=== PATIENT | female | born 1940 | race Caucasian/White ===

== ENCOUNTER 2020-06-23 15:12 | Observation (INO) | payer MEDICARE, SELFPAY ==
[2020-06-23] VITALS (8 sets, daily range): BP systolic 126–181; BP diastolic 92–138; PULSE 73–144; RESP 16–18; TEMP 36.3–36.9; O2SAT 94–98; BMI 40.0
--- NOTE | 2020-06-23 15:55 | ECG_ITS ---
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 Measurements Intervals [place] Rate: 84 P: KS: QRS: 54 QRSD: 89 T: 99 QT: 248 QTc: 293 Interpretive Statements ATRIAL FIBRILLATION NONSPECIFIC ST & T-WAVE ABNORMALITY ABNORMAL RHYTHM ECG No previous ECG available for comparison Electronically Signed On 06-23-2020 18:36:36 TOLL TICKET CLERK by Gertrudis Diehl M.D. [id number]
--- NOTE | 2020-06-23 15:55 | XR_ITS ---
WS: [id number] XR chest 1V portable [id number] REASON FOR EXAM: chest pain FINDINGS: Moderate tortuosity the thoracic aorta without aneurysmal dilatation. Heart size within normal limits. Calcified granulomatous changes in both hemithoraces. No active pulmonary parenchymal or pleural disease noted. Mild degenerative changes in the lower thoracic spine. XR/XR chest 1V portable [id number] IMPRESSION: No acute chest abnormality.
[2020-06-23 16:01] LABS: Basophils # 0.1 10^3/uL (0.0-0.1); Basophils % 0.9 %; Eosinophils # 0.5 10^3/uL (0.0-0.8); Eosinophils % 5.9 %; Hematocrit 46.7 % (37.0-47.0); Hemoglobin 15.1 g/dL (11.5-15.3); Lymphocytes # 2.6 10^3/uL (0.8-4.8); Mean Corpuscular HGB Conc 32.3 g/dL (30.0-36.0); Mean Corpuscular Volume 89.6 fL (81-99); Mean Platelet Volume 10.8 fL (7.4-10.4); Monocytes # 0.8 10^3/uL (0.2-0.9); Monocytes % 8.3 %; Neutrophils # 5.04 10^3/uL (1.8-7.7); Neutrophils % 55.4 %; Nucleated Red Blood Cells % 0 %; Platelet Count 248 10^3/cmm (130-400); Red Blood Count 5.21 10^6/uL (4.1-5.3); Red Cell Distribution Width 13.4 % (12.1-15.1); White Blood Count 9.1 10^3/uL (4.0-10.0)
[2020-06-23 16:26] LABS: Troponin(5th) Baseline 20 ng/L (0-10)
[2020-06-23 16:34] LABS: Alanine Aminotransferase 14 U/L (0-33); Albumin Level 4.4 g/dL (3.5-5.2); Alkaline Phosphatase 83 IU/L (35-105); Aspartate Amino Transferase 15 U/L (0-32); Blood Urea Nitrogen 29 mg/dL (8-23); Calcium 10.4 mg/dL (8.5-10.5); Carbon Dioxide 27 mmol/L (22-29); Chloride 102 mmol/L (98-107); Globulin 2.5 g/dL (1.3-4.6); Glucose 101 mg/dL (65-115); NT Pro B Type Natriuretic Pept 1524 pg/mL (0-450); Osmolality Calculated 298 mOsm/kg (285-295); Sodium 141 mmol/L (136-145); Thyroid Stimulating Hormone 2.68 uIU/mL (0.27-4.20); Total Bilirubin 0.4 mg/dL (0.15-1.2); Total Protein 6.9 g/dL (6.6-8.7)
[2020-06-23 17:08] LABS: Protein Urine Neg (Negative); Specific Gravity, Urine 1.015 (1.005-1.030); Urine Appearance Hazy (CLEAR); Urine Color Yellow (Yellow); pH Urine 6 (5-7)
[2020-06-23 17:09] LABS: Add Urine Culture? Yes; Add Urine Microscopic? YES; Bacteria Urine 1+ /hpf; Bilirubin Urine Neg (Negative); Blood Urine Neg (Negative); Glucose Urine UA Norm (Normal); Ketones Urine Negative (Negative); Leukocyte Esterase Urine 1+ (Negative); Nitrate Urine Negative (Negative); RBC Urine 0-4 /hpf (0-2); Squamous Epithelial Cell Urine 0-4 /hpf (0-5); Urobilinogen Urine Norm (Negative); WBC Urine 25-40 /hpf (0-5)
--- NOTE | 2020-06-23 18:02 | PM.HP ---
Providers/Chief Complaint Admitting Physician: Saul Schmidt MD Primary Care Provider: Jossie Beth MD Chief Complaint: A FIB History of Present Illness Zenia Streeter is a 79 year old female with a past medical history of diastolic CHF, hypertension, hyperlipidemia who presents to [facility] due to complaints of tachycardia. Patient tells me that she checks her blood pressure regularly, roughly 2 days ago, she noticed that her heart rates were in the 140s, she felt palpitations, no shortness of breath, no chest pain, no orthopnea, no paroxysmal nocturnal dyspnea, no alcohol use, no drug use. These palpitations and fast heart rate persisted, until she presented to Dr. Beth office, was diagnosed with A. fib, told to come to the emergency room. In the emergency room patient was found to have A. fib with RVR, heart rates in the 140s, heart rates improved with 20 mg of IV Cardizem, heart rates now in the 90s to 110s, atrial fibrillation, hypertensive urgency, blood pressure 181/138, no chest pain, no palpitations, no lightheadedness, no dizziness, no strokelike symptoms, no focal neurologic deficits, no paresthesias, no headache, no blurry vision. She denies a history of CAD, no history of strokes, no history of CKD. Review of Systems Const: Denies: fever(s), chills, fatigue or malaise Eyes: Denies: change in vision or blurry vision ENMT: Denies: nasal congestion Card: Denies: chest pain or palpitations Resp: Denies: dyspnea, productive cough, non-productive cough or wheezing GI: Denies: abdominal pain, nausea, vomiting, hematemesis, diarrhea, constipation, hematochezia or melena : Denies: flank pain, dysuria or urinary frequency Musc: Denies: neck pain or back pain Skin/Breast: Denies: rash Neuro: Denies: headache(s), dizziness or vertigo Psych: Denies: anxiety or depression Endo: Denies: polyuria or polydipsia Medications/Allergies Home Medications Medication Instructions Recorded Confirmed Last Taken Type bupropion HCl 300 mg PO DAILY@06/23/20 06/23/20 06/23/20 History citalopram 20 mg PO DAILY@06/23/20 06/23/20 06/23/20 History furosemide 20 mg PO DAILY@06/23/20 06/23/20 06/23/20 History hydrochlorothiazide 25 mg PO DAILY@06/23/20 06/23/20 06/23/20 History losartan 100 mg PO DAILY@06/23/20 06/23/20 06/23/20 History melatonin 10 mg PO BEDTIME@06/23/20 06/23/20 06/22/20 History meloxicam 15 mg PO DAILY@06/23/20 06/23/20 06/23/20 History pravastatin 40 mg PO BEDTIME@06/23/20 06/23/20 06/22/20 History Allergies Allergy/AdvReac Type Severity Reaction Status Date / Time No Known Allergies Allergy Verified 06/23/20 12:31 PFSH Acute PFSH: Medical History (Updated 06/23/20 @ 18:06 by Saul Schmidt MD) Benign hypertension History of alcoholism Insomnia Moderate episode of recurrent major depressive disorder Primary generalized (osteo)arthritis Surgical History History of hip surgery Hx of cholecystectomy Family History (Updated 06/23/20 @ 18:03 by Saul Schmidt MD) Mother Bipolar disorder Alcohol abuse Father CAD (coronary artery disease) Social History (Updated 06/23/20 @ 15:33 by Joseph Villatoro RN) Smoking and tobacco status: former smoker Quit status (tobacco): has quit using tobacco Former quit date comment: when she was 23 yo Alcohol intake: former Substance/Drug Use: never History of recent travel: No Current gender identity: Female Vitals/I&O/Wt Last Vital Signs Temp 97.3 F L 06/23/20 15:28 Pulse 100 06/23/20 16:53 Resp 17 06/23/20 16:53 BP 181/138 06/23/20 16:36 Pulse Ox 98 06/23/20 16:53 Weight last 48 hrs Weight 102.512 kg Physical Exam Const: COMMON NORMALS: no acute distress and patient oriented x3 GENERAL APPEARANCE: cooperative and comfortable HENMT: COMMON NORMALS: normocephalic HEAD & SCALP: normocephalic Eye: COMMON NORMALS: Equal, round and reactive pupils present and EOMs intact bilaterally GENERAL EYE: appearance normal, both eyes and all related structures PUPIL: Yes Equal, round and reactive pupils present Neck/C-Spine: COMMON NORMALS: full ROM, no lymphadenopathy, no JVD and Thyroid normal THYROID: Thyroid normal Lymph: LYMPHATIC: no lymphadenopathy noted Resp: COMMON NORMALS: normal respiratory effort, No retractions, No use of accessory muscles and clear to auscultation bilaterally AUSCULTATION: clear to auscultation bilaterally Cardio: COMMON NORMALS: no JVD, regular rate, regular rhythm, S1 normal heart sound present, S2 normal heart sound present, No gallops present (Cardio), No clicks present (Cardio) and No murmurs present (Cardio) RATE: tachycardic RHYTHM: abnormal rhythm HEART SOUNDS: S1 normal heart sound present and S2 normal heart sound present GI: COMMON NORMALS: Normal to inspection, nondistended, normoactive bowel sounds present, Soft to palpation, non-tender and No hepatosplenomegaly present PALPATION: Yes Soft to palpation and Yes No hepatosplenomegaly present Extremity: COMMON NORMALS: normal to inspection, full ROM and no pedal edema Neuro: COMMON NORMALS: patient oriented x3, CN's II-XII intact bilaterally, moves all extremities and no focal motor deficits Psych: COMMON NORMALS: mental status grossly normal, Normal thought process present and cooperative THOUGHT PROCESS: Normal thought process present Data : 06/23/20 15:53 06/23/20 15:53 A&P Assessment and plan (1) Hyperlipidemia: Continue atorvastatin Status: Chronic Qualifiers: Hyperlipidemia type: mixed hyperlipidemia Qualified Code(s): E78.2 - Mixed hyperlipidemia (2) Benign hypertension: Continue Lasix 20 twice daily, hydrochlorothiazide 25 mg daily, losartan 100 mg daily, added metoprolol 25 twice daily, 10 mg daily -Labetalol as needed Status: Acute (3) Diastolic CHF: Ordered cardiac echocardiogram, BNP 1524, Lasix 20 twice daily Status: Acute (4) New onset atrial fibrillation: -Metoprolol 25 mg twice daily -TSH, magnesium pending -Eliquis 5 mg twice daily -Telemetry monitoring -Cardiac echo Status: Acute (5) Hypertensive urgency: -EKG no signs of acute ST-T wave changes, will order CT of the head to evaluate for stroke, blood work unremarkable for CKD -Metoprolol 25 twice daily, Norvasc 10 mg added -Labetalol 10 mg twice daily as needed for hypertension Status: Acute (6) NSTEMI (non-ST elevated myocardial infarction): -Baseline troponin 20 -EKG no acute ST-T wave changes -Trend troponins, trend EKGs, telemetry monitoring, monitor for chest pain -No active chest pain -Likely supply demand ischemia from CHF and A. fib -Statin, aspirin Status: Acute (7) Moderate episode of recurrent major depressive disorder: Status: Acute Attestations Medical Necessity Statement*: Patient requires hospitalization, outpatient with observation, for new onset atrial fibrillation, A. fib with RVR, NSTEMI, hypertensive urgency Coding Level of Care Code Acute Manuscript Reader for Chg Fwd Diagnoses Hyperlipidemia E78.2 Hyperlipidemia type: mixed hyperlipidemia Benign hypertension I10 Diastolic CHF I50.30 New onset atrial fibrillation I48.91 Hypertensive urgency I16.0 NSTEMI (non-ST elevated myocardial infarction) I21.4 Moderate episode of recurrent major depressive disorder F33.1
[2020-06-23 19:09] LABS: Troponin 5 2HR 19.11 ng/L (0-10)
[2020-06-23 19:14] LABS: Troponin 5 2HR Delta -0.89 ABS# (0-10)
--- NOTE | 2020-06-23 19:29 | CTR_ITS ---
PROCEDURE INFORMATION: Exam: CT Head Without Contrast Exam date and time: 06/23/2020 7:35 PM Age: 79 years old Clinical indication: Other: Hypertension; Patient HX: Hypertensive; Additional info: HTN urgency TECHNIQUE: Imaging protocol: Computed tomography of the head without contrast. Radiation optimization: All CT scans at this facility use at least one of these dose optimization techniques: automated exposure control; mA and/or kV adjustment per patient size (includes targeted exams where dose is matched to clinical indication); or iterative reconstruction. COMPARISON: No relevant prior studies available. RADIATION DOSE METRICS: Total DLP (mGy-cm): 775.22 FINDINGS: Brain: Mild diffuse cortical volume loss. Moderate patchy hypodensities in supratentorial periventricular and subcortical white matter. No intracranial hemorrhage. Cerebral ventricles: No ventriculomegaly. Bones/joints: Unremarkable. No acute fracture. Paranasal sinuses: Visualized sinuses are unremarkable. No fluid levels. Mastoid air cells: Visualized mastoid air cells are well aerated. Soft tissues: Unremarkable. CT/CT head wo con* [id number] IMPRESSION: 1. No acute intracranial abnormality. 2. Moderate microangiopathy. Radiation Dose CTDIVOL = (mGy): DLP = 775.22 (mGy-cm)
[2020-06-23 20:55] LABS: Magnesium 1.9 mg/dL (1.7-2.3)
--- NOTE | 2020-06-23 21:02 | W.ED.ARRPALP ---
HPI - Arrhythmia/Palpitations General: Chief Complaint: Arrhythmia/Palpitations Stated Complaint: new onset afib Time Seen by Provider: 06/23/20 15:43 Source: patient Mode of arrival: ambulatory Limitations: no limitations History of Present Illness: HPI narrative: The patient is a 79-year-old female with no prior cardiac history who presents to the emergency department with complaints of palpitation and feeling like her heart racing that started yesterday. She has no chest pain, but has some shortness of breath. She denies any fever, dizziness, cough. She went to her primary care provider's office today and he did an EKG which showed A. fib with RVR and she was sent here to be seen and evaluated. complaint: heart racing and palpitations Associated symptoms: Deny nausea or vomiting Review of Systems General: Reports: 10 or more systems reviewed and unremarkable except in HPI and below Const: Denies: fever(s), chills or body aches Eyes: Denies: change in vision or blurry vision ENMT: Denies: throat pain, enlarged tonsils, odynophagia, hoarseness, mouth pain or swelling of lips/tongue Card: Reports: palpitations and irregular heart rhythm; Denies: chest pain, edema or swelling of feet/ankles Resp: Denies: dyspnea, productive cough or non-productive cough GI: Denies: abdominal pain, nausea or vomiting : Denies: flank pain, difficulty voiding, dysuria, urinary frequency, urinary urgency or urinary hesitancy Musc: Denies: neck pain, back pain or extremity swelling Skin/Breast: Denies: rash, pruritus or erythema Neuro: Denies: headache(s), numbness in extremities or weakness in extremities Endo: Denies: polyuria, polydipsia or tired all the time [facility] ED PFSH: Medical History Benign hypertension History of alcoholism Insomnia Moderate episode of recurrent major depressive disorder Primary generalized (osteo)arthritis Surgical History History of hip surgery Hx of cholecystectomy Family History Mother Bipolar disorder Alcohol abuse Father CAD (coronary artery disease) Social History Smoking and tobacco status: former smoker Quit status (tobacco): has quit using tobacco Former quit date comment: when she was 23 yo Alcohol intake: former Substance/Drug Use: never History of recent travel: No Current gender identity: Female Physical Exam Const: COMMON NORMALS: no acute distress, average body habitus, patient oriented x3, no limitations, healthy appearing, alert and well nourished HENMT: COMMON NORMALS: normocephalic, atraumatic and moist oral mucous membranes HEAD & SCALP: normocephalic and atraumatic Neck/C-Spine: COMMON NORMALS: no meningeal signs and no JVD Resp: COMMON NORMALS: normal respiratory effort, No retractions, No use of accessory muscles, clear to auscultation bilaterally and percussion normal AUSCULTATION: clear to auscultation bilaterally PERCUSSION: percussion normal Cardio: COMMON NORMALS: no JVD, S1 normal heart sound present, S2 normal heart sound present, No gallops present (Cardio), No clicks present (Cardio), No murmurs present (Cardio), No rub (Cardio) and Peripheral pulses 2+ throughout RATE: tachycardic RHYTHM: abnormal rhythm irregularly irregular HEART SOUNDS: S1 normal heart sound present and S2 normal heart sound present PERIPHERAL PULSES: Peripheral pulses 2+ throughout GI: COMMON NORMALS: Normal to inspection, nondistended, normoactive bowel sounds present, Soft to palpation, non-tender, No hepatosplenomegaly present, no masses and no bruits PALPATION: Yes Soft to palpation and Yes No hepatosplenomegaly present Extremity: COMMON NORMALS: normal to inspection, full ROM, capillary refill normal, no calf tenderness and no pedal edema Neuro: COMMON NORMALS: patient oriented x3 SENSORIUM/ORIENTATION: Yes alert MENINGEAL SIGNS: Yes no meningeal signs Skin: COMMON NORMALS: no rashes or lesions noted, no wounds, turgor normal, no jaundice, no petechiae and no mottling GENERAL SKIN EXAM: no rashes or lesions noted and turgor normal Course ED course: Patient who presented to the emergency department in A. fib with RVR and received a single dose of intravenous diltiazem which controlled her heart rate. Consultations: Consultation #1: Discussed the patient with Dr. Schmidt, hospitalist and he kindly accepted the patient to his service Time: 17:09 Vital Signs: Vital signs: Vital Signs Temperature 98.2 F 06/23/20 19:29 Pulse Rate 91 06/23/20 19:29 Respiratory Rate 18 06/23/20 19:29 Blood Pressure 161/98 06/23/20 19:29 Pulse Oximetry 98 06/23/20 19:29 MDM - Arrhythmia/Palpitations MDM Narrative: Medical decision making narrative: 79-year-old female patient with new onset atrial fibrillation. She came into the emergency department in A. fib with RVR, and responded to a single dose of intravenous diltiazem. Evaluation also showed that she is in heart failure and she has mildly elevated troponin. She is admitted to the hospital for further evaluation and management. Medical Records: Attestation: I reviewed the patient's medical records. Lab Data: Attestation: I reviewed the patient's lab results. Labs: Lab Results 06/23/20 06/23/20 06/23/20 Range/Units 15:53 15:53 15:53 WBC 9.1 (4.0-10.0) 10^3/ uL RBC 5.21 (4.1-5.3) 10^6/u L Hgb 15.1 (11.5-15.3) g/dL Hct 46.7 (37.0-47.0) % MCV 89.6 (81-99) fL MCH 29.0 (28.0-34.0) pg MCHC 32.3 (30.0-36.0) g/dL RDW 13.4 (12.1-15.1) % Plt Count 248 (130-400) 10^3/c mm MPV 10.8 H (7.4-10.4) fL Neut % (Auto) 55.4 % Lymph % (Auto) 29.0 % Saunders % (Auto) 8.3 % Eos % (Auto) 5.9 % Baso % (Auto) 0.9 % Neut # (Auto) 5.04 (1.8-7.7) 10^3/u L Lymph # (Auto) 2.6 (0.8-4.8) 10^3/u L Saunders # (Auto) 0.8 (0.2-0.9) 10^3/u L Eos # (Auto) 0.5 (0.0-0.8) 10^3/u L Baso # (Auto) 0.1 (0.0-0.1) 10^3/u L Nucleated RBC % (a uto) 0 % Nucleated RBCs # 0.0 /100WBC Sodium 141 (136-145) mmol/L Potassium 4.0 (3.5-5.1) mmol/L Chloride 102 (98-107) mmol/L Carbon Dioxide 27 (22-29) mmol/L Anion Gap 16.0 (5-19) BUN 29 H (8-23) mg/dL Creatinine 0.9 (0.5-0.9) mg/dL GFR Calculation Not Reportable Glucose 101 (65-115) mg/dL Calculated Osmolal ity 298 H (285-295) mOsm/k g Calcium 10.4 (8.5-10.5) mg/dL Total Bilirubin 0.4 (0.15-1.2) mg/dL AST 15 (0-32) U/L ALT 14 (0-33) U/L Alkaline Phosphata se 83 (35-105) IU/L Troponin T Baselin e 20 H (0-10) ng/L NT-Pro-B Natriuret Pep 1524 H (0-450) pg/mL Total Protein 6.9 (6.6-8.7) g/dL Albumin 4.4 (3.5-5.2) g/dL Globulin 2.5 (1.3-4.6) g/dL TSH 2.68 (0.27-4.20) uIU/ mL Urine Color (Yellow) Urine Appearance (CLEAR) Urine pH (5-7) Ur Specific Gravit y (1.005-1.030) Urine Protein (Negative) Urine Glucose (UA) (Normal) Urine Ketones (Negative) Urine Blood (Negative) Urine Nitrate (Negative) Urine Bilirubin (Negative) Urine Urobilinogen (Negative) mg/dL Ur Leukocyte Tarah ase (Negative) Urine RBC (0-2) /hpf Urine WBC (0-5) /hpf Ur Squamous Epith Cells (0-5) /hpf Amorphous Sediment Urine Bacteria (NONE) /hpf 12/18/20 Range/Units 16:48 WBC (4.0-10.0) 10^3/ uL RBC (4.1-5.3) 10^6/u L Hgb (11.5-15.3) g/dL Hct (37.0-47.0) % MCV (81-99) fL MCH (28.0-34.0) pg MCHC (30.0-36.0) g/dL RDW (12.1-15.1) % Plt Count (130-400) 10^3/c mm MPV (7.4-10.4) fL Neut % (Auto) % Lymph % (Auto) % Saunders % (Auto) % Eos % (Auto) % Baso % (Auto) % Neut # (Auto) (1.8-7.7) 10^3/u L Lymph # (Auto) (0.8-4.8) 10^3/u L Saunders # (Auto) (0.2-0.9) 10^3/u L Eos # (Auto) (0.0-0.8) 10^3/u L Baso # (Auto) (0.0-0.1) 10^3/u L Nucleated RBC % (a uto) % Nucleated RBCs # /100WBC Sodium (136-145) mmol/L Potassium (3.5-5.1) mmol/L Chloride (98-107) mmol/L Carbon Dioxide (22-29) mmol/L Anion Gap (5-19) BUN (8-23) mg/dL Creatinine (0.5-0.9) mg/dL GFR Calculation Glucose (65-115) mg/dL Calculated Osmolal ity (285-295) mOsm/k g Calcium (8.5-10.5) mg/dL Total Bilirubin (0.15-1.2) mg/dL AST (0-32) U/L ALT (0-33) U/L Alkaline Phosphata se (35-105) IU/L Troponin T Baselin e (0-10) ng/L NT-Pro-B Natriuret Pep (0-450) pg/mL Total Protein (6.6-8.7) g/dL Albumin (3.5-5.2) g/dL Globulin (1.3-4.6) g/dL TSH (0.27-4.20) uIU/ mL Urine Color Yellow (Yellow) Urine Appearance Hazy A (CLEAR) Urine pH 6 (5-7) Ur Specific Gravit y 1.015 (1.005-1.030) Urine Protein Neg (Negative) Urine Glucose (UA) Norm (Normal) Urine Ketones Negative (Negative) Urine Blood Neg (Negative) Urine Nitrate Negative (Negative) Urine Bilirubin Neg (Negative) Urine Urobilinogen Norm (Negative) mg/dL Ur Leukocyte Tarah ase 1+ H (Negative) Urine RBC 0-4 H (0-2) /hpf Urine WBC 25-40 H (0-5) /hpf Ur Squamous Epith Cells 0-4 H (0-5) /hpf Amorphous Sediment Not Reportable Urine Bacteria 1+ H (NONE) /hpf Imaging Data^: CXR: Attestation: I personally reviewed and interpreted this imaging study as follows: Radiologist's impression: [address] [address] XRay Report Signed Patient: Zenia Streeter #: [id number] : 1940cct#:[id number] Age/Sex: 79 / FADM Date: 06/23/20 [facility] Attending Dr: Ordering Provider/Ordering MD: Carlota Urban MD, [facility] Date of Service: 06/23/20 Procedure(s): XR chest 1V portable [id number] Accession Number(s): [id number] Report Number: [id number] WS: [id number] XR chest 1V portable [id number] REASON FOR EXAM: chest pain FINDINGS: Moderate tortuosity the thoracic aorta without aneurysmal dilatation. Heart size within normal limits. Calcified granulomatous changes in both hemithoraces. No active pulmonary parenchymal or pleural disease noted. Mild degenerative changes in the lower thoracic spine. XR/XR chest 1V portable [id number] IMPRESSION: No acute chest abnormality. Dictated By:Oumar Chambers Jr, MD Signed By:Oumar Chambers Jr MDSigned Date/Time:06/23/20 1633 DD/ 1632 EKG Data^: EKG 1: Attestation: I personally reviewed and interpreted this EKG as follows: EKG interpretation date: 06/23/20 EKG interpretation time: 15:36 Prior EKG tracings: not available for review Interpretation: Atrial fibrillation with RVR. Heart rate [address] changes. Other EKG comments: Chest X-Ray 06/23/20 15:55 IMPRESSION: No acute chest abnormality. Head CT 06/23/20 19:29 IMPRESSION: 1. No acute intracranial abnormality. 2. Moderate microangiopathy. Radiation Dose CTDIVOL = (mGy): DLP = 775.22 (mGy-cm) EKG 2: Attestation: I personally reviewed and interpreted this EKG as follows: EKG interpretation date: 06/23/20 EKG interpretation time: 16:23 Prior EKG tracings: available for review Interpretation: Atrial fibrillation. Heart rate [address] changes. Other EKG comments: Chest X-Ray 06/23/20 15:55 IMPRESSION: No acute chest abnormality. Head CT 06/23/20 19:29 IMPRESSION: 1. No acute intracranial abnormality. 2. Moderate microangiopathy. Radiation Dose CTDIVOL = (mGy): DLP = 775.22 (mGy-cm) Critical Care Time Critical Care Time: Critical Care Time: Yes Total Critical Care Time: 30 Attestation: This case had a high probability of a clinically significant, sudden, or life threatening deterioration of this patient's condition which required my full and direct attention, intervention and personal management. Discharge Plan Discharge Patient Disposition: Admitted As Inpatient Admit Provider: Saul Schmidt Clinical Impression: New onset atrial fibrillation, Hypertensive urgency, Elevated troponin Condition: Stable Coding Level of Care Code ED Marketing Automation Manager for Phil Palencia
[2020-06-23] MEDS: metoprolol tartrate 25 mg Tablet PO (21:21)
[2020-06-23] MEDS: apixaban 5 mg Tablet PO (21:21)
[2020-06-23] MEDS: FUROsemide 20 mg Tablet PO (21:21)
[2020-06-23] MEDS: amlodipine 10 mg Tablet PO (21:21)
[2020-06-23] MEDS: labetalol 5 mg/mL SDV 20mL 10 MG IVP (21:26)
--- NOTE | 2020-06-23 21:55 | ECG_ITS ---
[facility] Test Date: 2020-06-23 Pat Name: Zenia Streeter Department: Room: 103 Gender: Female Master Yacht: DESHAUN LAURENTB: 1940 Requested By: Carlota Urban I Order Number: [id number] Julio MD: Rebecca Proctor M.D. Measurements Intervals [place] Rate: 82 P: CT: QRS: 51 QRSD: 94 T: 83 QT: 409 QTc: 480 Interpretive Statements ATRIAL FIBRILLATION NONSPECIFIC T-WAVE ABNORMALITY Compared to ECG 06/23/2020 16:23:08 No significant changes Electronically Signed On 06-24-2020 8:46:12 DEATH CLEARANCE COORDINATOR by Rebecca Proctor M.D. [id number]
--- NOTE | 2020-06-23 22:29 | PC.NURSE ---
Patient arrived to floor at 1900 via wheelchair from ED. Patient alert and oriented X 4 no skin issues. Patient able to ambulate per self with use of home brought cane. Patient without distress at this time and pulse rate is in the 80's-110's. Rythmn at AFIB with a controlled rate at this time. Patient BP is still elevated will give PRN medication and ordered scheduled medications as ordered. No fall risk noted at this time. Will continue to monitor and assist as needed following Current Plan of Care
[2020-06-23 22:30] LABS: Troponin 5 6HR 20.76 ng/L (0-10); Troponin 5 6HR Delta 0.76 ng/L (0-12)
[2020-06-23] MEDS: atorvastatin 40 mg Tablet 20 MG PO (22:58)
[2020-06-24] VITALS (8 sets, daily range): BP systolic 114–136; BP diastolic 67–91; PULSE 72–88; RESP 17–23; TEMP 36.3–36.7; O2SAT 93–96
[2020-06-24 05:07] LABS: Basophils # 0.1 10^3/uL (0.0-0.1); Basophils % 1.2 %; Eosinophils # 0.5 10^3/uL (0.0-0.8); Eosinophils % 6.3 %; Hematocrit 42.4 % (37.0-47.0); Hemoglobin 13.7 g/dL (11.5-15.3); Lymphocytes # 2.6 10^3/uL (0.8-4.8); Lymphocytes % 29.8 %; Mean Corpuscular HGB Conc 32.3 g/dL (30.0-36.0); Mean Corpuscular Hemoglobin 29.1 pg (28.0-34.0); Mean Corpuscular Volume 90.2 fL (81-99); Mean Platelet Volume 11.6 fL (7.4-10.4); Monocytes # 0.9 10^3/uL (0.2-0.9); Monocytes % 9.9 %; Neutrophils # 4.47 10^3/uL (1.8-7.7); Neutrophils % 52.3 %; Nucleated Red Blood Cells % 0 %; Platelet Count 236 10^3/cmm (130-400); Red Cell Distribution Width 13.6 % (12.1-15.1); White Blood Count 8.6 10^3/uL (4.0-10.0)
[2020-06-24 06:04] LABS: Chol HDL Ratio 2.43 mg/dL (0.0-4.40); Cholesterol 170 mg/dL (0-200); HDL Cholesterol 70 mg/dL (60-100); LDL Cholesterol Calculated 83 mg/dL (50-129); LDL HDL Ratio 1.19 RATIO (0.00-3.22); Triglycerides 83 mg/dL (0-150)
[2020-06-24 06:11] LABS: Alanine Aminotransferase 13 U/L (0-33); Albumin Level 3.8 g/dL (3.5-5.2); Alkaline Phosphatase 68 IU/L (35-105); Aspartate Amino Transferase 15 U/L (0-32); Blood Urea Nitrogen 21 mg/dL (8-23); Calcium 9.9 mg/dL (8.5-10.5); Carbon Dioxide 27 mmol/L (22-29); Chloride 102 mmol/L (98-107); Globulin 2.4 g/dL (1.3-4.6); Glucose 92 mg/dL (65-115); Magnesium 1.8 mg/dL (1.7-2.3); Osmolality Calculated 295 mOsm/kg (285-295); Phosphorus 3.7 mg/dL (2.5-4.5); Sodium 141 mmol/L (136-145); Thyroid Stimulating Hormone 2.82 uIU/mL (0.27-4.20); Total Bilirubin 0.4 mg/dL (0.15-1.2); Total Protein 6.2 g/dL (6.6-8.7)
[2020-06-24] MEDS: citalopram 20 mg Tablet PO (06:39)
[2020-06-24] MEDS: FUROsemide 20 mg Tablet PO (06:40)
[2020-06-24] MEDS: buPROPion XL (24 HR) 150 mg Tablet 300 MG PO (06:40)
[2020-06-24] MEDS: losartan 50 mg Tablet 100 MG PO (06:40)
[2020-06-24] MEDS: hydroCHLOROthiazide 25 mg Tablet PO (06:40)
[2020-06-24] MEDS: metoprolol tartrate 25 mg Tablet PO (06:41)
[2020-06-24] MEDS: apixaban 5 mg Tablet PO ×2 (08:46→17:15)
[2020-06-24 10:26] LABS: Estmated Average Glucose 108; Hemoglobin A1C 5.4 % (4.0-6.0)
--- NOTE | 2020-06-24 10:41 | PC.CHAP ---
Pastoral Care Encounter/Spiritual Assessment Type of Contact [] Declined fence supervisor visit [] Patient/Family/Request visit [] Outpatient visit [] Follow-up visit [] Physician referral [] Code/Alert [X] Routine visit [] Staff referral [] Actively dying [] Patient sleeping [] Family support [] [] Out of room [] Palliative care [] [] Receiving care in room [] Pre-surgical visit [] Trauma [] Long length of stay [] ICU visit [] Other: Relational/Emotional Strength [X] Patient feels connected with others/family/visitors/staff [] Distress [] Loneliness/isolation [] Abandonment Spirituality of Patient [X] Person of Rosa Isela [X] Attends Temple of their Rosa Isela [X] Believes in Prayer [X] Reads Bible or Moravian materials [] There are Spiritual issues to be addressed Catalog Specialist Interventions [X] Prayer [X] Active listening [X] Non-anxious presence [] Spiritual/emotional support [] Crisis/trauma care [] Spiritual counseling [] Bereavement support [] Provided bereavement packet [X] Provided Bible/devotional materials [] Provided toy/stuffed animal, coloring book to patient or family member [] Provided Communion [] Anointing/[place] [] Salvation [X] Completed spiritual assessment [] Other: Impact on Illness or Injury [] Angry [] Fearful [] Anxious [] Often cries [] Exhaustion [] Unable to work [] Unable to attend sikh [] Unable to walk/stand [] Unable to read [] Unable to drive [] Unable to eat/drink [] Unable to sleep [] Unable to be with family [] Patient intubated [] Other: Summary: Pt is steadfast in her rosa isela and has a strong support system through her family and restorationism family. Pt and her have both had COVID and have been dealing with COVID + other medical issues for over 2 months, at this point. Pt was optimistic and in good spirits; hopeful to return home in a couple of days and be with her and daughter through the holidays. She has sons in [facility] but they are not able to be together in person, at this time. Time spent with patient: 10 - 15 mins
[2020-06-24] MEDS: aspirin 81 mg EC Tablet PO (15:39)
--- NOTE | 2020-06-24 16:22 | PM.DCS ---
Discharge Providers Date of Admission: 06/23/20 17:23 Date of Discharge: June 24, 2020 Attending Provider at Admission: Saul Schmidt MD Attending Provider at Discharge: Saul Schmidt MD Primary Care Provider: Jossie Beth MD Diagnoses at Discharge Discharge Diagnosis (1) Hyperlipidemia: Status: Chronic Qualifiers: Hyperlipidemia type: mixed hyperlipidemia Qualified Code(s): E78.2 - Mixed hyperlipidemia (2) Benign hypertension: Status: Acute (3) Diastolic CHF: Status: Acute (4) New onset atrial fibrillation: Status: Acute (5) Hypertensive urgency: Status: Acute (6) NSTEMI (non-ST elevated myocardial infarction): Status: Acute (7) Moderate episode of recurrent major depressive disorder: Status: Acute Reason for Visit Reason for Visit: A FIB Hospital Course Hospital Course Zenia Streeter is a 79 year old female with a past medical history of diastolic CHF, hypertension, hyperlipidemia who presents to [facility] due to complaints of tachycardia. Patient was admitted to [facility] for A. fib with RVR, managed on cardiac stepdown unit, rate controlled with metoprolol 25 twice daily, Eliquis 5 mg twice daily. Patient was relatively asymptomatic, no chest pain, no shortness of breath, no orthopnea, no paroxysmal nocturnal dyspnea, no edema. On discharge patient was in and out of A. fib, heart rates between 90s-100s. Will be discharged on Metroprolol 25 twice daily, Eliquis 5 mg twice daily, repeat CBC and CMP in 1 week, follow-up with Dr. Jossie Beth in 1 week. Patient also had hypertensive urgency during her admission, no focal neurologic deficits, no chest pain, no evidence of CKD, CT of the head was negative for acute stroke, discharged on her home blood pressure medications in addition to, metoprolol 25 twice daily, Norvasc 10 mg every 24, Lasix 20 mg twice daily with a close follow-up with her primary care provider Echocardiogram during her hospital admission showed that her ejection fraction was mildly decreased to 45 to 50%, mild global hypokinesis, mild biatrial enlargement, mild tricuspid valve regurg. Patient's EKG showed no acute ST-T wave changes, 6-hour troponin 20.76, delta 0.76. Patient was asymptomatic, no chest pain, no shortness of breath. After discussion with cardiology, decision was made to follow-up with Dr. Proctor in 2 weeks, and decision to pursue a outpatient stress test. Patient was advised that if she were to have chest pain or significant shortness of breath to come back to emergency room. I have discharged on aspirin, statin, beta-janelle. Physical Exam Const: COMMON NORMALS: no acute distress and patient oriented x3 HENMT: COMMON NORMALS: normocephalic HEAD & SCALP: normocephalic Neck/C-Spine: COMMON NORMALS: no JVD Resp: COMMON NORMALS: normal respiratory effort, No retractions, No use of accessory muscles and clear to auscultation bilaterally AUSCULTATION: clear to auscultation bilaterally Cardio: COMMON NORMALS: no JVD, regular rate, regular rhythm, S1 normal heart sound present and S2 normal heart sound present RATE: regular rate RHYTHM: regular rhythm HEART SOUNDS: S1 normal heart sound present and S2 normal heart sound present GI: COMMON NORMALS: Normal to inspection, nondistended, normoactive bowel sounds present, Soft to palpation, non-tender, No hepatosplenomegaly present, no masses and no bruits PALPATION: Yes Soft to palpation and Yes No hepatosplenomegaly present Extremity: COMMON NORMALS: capillary refill normal, no clubbing, cyanosis or edema, no calf tenderness and no pedal edema Neuro: COMMON NORMALS: patient oriented x3 Psych: COMMON NORMALS: mental status grossly normal Discharge Data Data Completed and Pending: Completed Studies During Hospitalization Category Date Time Status CT head wo con* 7 [id number] Stat Cat Scan 06/23/20 19:29 Completed XR chest 1V krishna ble [id number] Stat Exams 06/23/20 15:55 Completed CV echo complete* [id number] Routine Ultrasound 06/24/20 19:29 Completed Pending at discharge Category Date Time Status Complete Blood Co unt w/Auto AM LABS Lab 06/25/20 04:00 Ordered Complete Blood Co unt w/Auto AM LABS Lab 06/26/20 04:00 Ordered Comprehensive Met abolic Panel AM LA BS Lab 06/25/20 04:00 Ordered Comprehensive Met abolic Panel AM LA BS Lab 06/26/20 04:00 Ordered Magnesium AM LABS Lab 06/25/20 04:00 Ordered Magnesium AM LABS Lab 06/26/20 04:00 Ordered Phosphorus AM LAB S Lab 06/25/20 04:00 Ordered Phosphorus AM LAB S Lab 06/26/20 04:00 Ordered Urine Culture Sta t Lab 06/23/20 16:48 Results Labs from last 24 hours 06/24/20 06/24/20 06/24/20 04:17 04:17 04:17 WBC RBC Hgb Hct MCV MCH MCHC RDW Plt Count MPV Neut % (Auto) Lymph % (Auto) [place] % (Auto) Eos % (Auto) Baso % (Auto) Neut # (Auto) Lymph # (Auto) [place] # (Auto) Eos # (Auto) Baso # (Auto) Nucleated RBC % (a uto) Nucleated RBCs # Sodium 141 Potassium 4.0 Chloride 102 Carbon Dioxide 27 Anion Gap 16.0 BUN 21 Creatinine 0.9 GFR Calculation Not Reportable Glucose 92 Estimat Average Gl ucose 108 Hemoglobin A1c 5.4 Calculated Osmolal ity 295 Calcium 9.9 Phosphorus 3.7 Magnesium 1.8 Total Bilirubin 0.4 AST 15 ALT 13 Alkaline Phosphata se 68 Troponin T Baselin e Troponin T 120 Min [place] Delta Troponin T Troponin T Hi Sens 6Hr Troponin T Hi Sens 6Hr Delta NT-Pro-B Natriuret Pep Total Protein 6.2 L Albumin 3.8 Globulin 2.4 Triglycerides 83 Cholesterol 170 LDL Cholesterol, C alc 83 HDL Cholesterol 70 LDL/HDL Ratio 1.19 Cholesterol/HDL Ra tyree 2.43 TSH 2.82 Urine Color Urine Appearance Urine pH Ur Specific Gravit y Urine Protein Urine Glucose (UA) Urine Ketones Urine Blood Urine Nitrate Urine Bilirubin Urine Urobilinogen Ur Leukocyte [place] Urine RBC Urine WBC Ur Squamous Epith Cells Amorphous Sediment Urine Bacteria 06/24/20 06/23/20 06/23/20 04:17 22:00 20:28 WBC 8.6 RBC 4.70 Hgb 13.7 Hct 42.4 MCV 90.2 MCH 29.1 MCHC 32.3 RDW 13.6 Plt Count 236 MPV 11.6 H Neut % (Auto) 52.3 Lymph % (Auto) 29.8 [place] % (Auto) 9.9 Eos % (Auto) 6.3 Baso % (Auto) 1.2 Neut # (Auto) 4.47 Lymph # (Auto) 2.6 [place] # (Auto) 0.9 Eos # (Auto) 0.5 Baso # (Auto) 0.1 Nucleated RBC % (a uto) 0 Nucleated RBCs # 0.0 Sodium Potassium Chloride Carbon Dioxide Anion Gap BUN Creatinine GFR Calculation Glucose Estimat Average Gl ucose Hemoglobin A1c Calculated Osmolal ity Calcium Phosphorus Magnesium 1.9 Total Bilirubin AST ALT Alkaline Phosphata se Troponin T Baselin e Troponin T 120 Min [place] Delta Troponin T Troponin T Hi Sens 6Hr 20.76 H Troponin T Hi Sens 6Hr Delta 0.76 NT-Pro-B Natriuret Pep Total Protein Albumin Globulin Triglycerides Cholesterol LDL Cholesterol, C alc HDL Cholesterol LDL/HDL Ratio Cholesterol/HDL Ra tyree TSH Urine Color Urine Appearance Urine pH Ur Specific Gravit y Urine Protein Urine Glucose (UA) Urine Ketones Urine Blood Urine Nitrate Urine Bilirubin Urine Urobilinogen Ur Leukocyte [place] Urine RBC Urine WBC Ur Squamous Epith Cells Amorphous Sediment Urine Bacteria 06/23/20 06/23/20 06/23/20 18:23 16:48 15:53 WBC RBC Hgb Hct MCV MCH MCHC RDW Plt Count MPV Neut % (Auto) Lymph % (Auto) [place] % (Auto) Eos % (Auto) Baso % (Auto) Neut # (Auto) Lymph # (Auto) [place] # (Auto) Eos # (Auto) Baso # (Auto) Nucleated RBC % (a uto) Nucleated RBCs # Sodium Potassium Chloride Carbon Dioxide Anion Gap BUN Creatinine GFR Calculation Glucose Estimat Average Gl ucose Hemoglobin A1c Calculated Osmolal ity Calcium Phosphorus Magnesium Total Bilirubin AST ALT Alkaline Phosphata se Troponin T Baselin e 20 H Troponin T 120 Min [place] 19.11 H Delta Troponin T -0.89 L Troponin T Hi Sens 6Hr Troponin T Hi Sens 6Hr Delta NT-Pro-B Natriuret Pep Total Protein Albumin Globulin Triglycerides Cholesterol LDL Cholesterol, C alc HDL Cholesterol LDL/HDL Ratio Cholesterol/HDL Ra tyree TSH Urine Color Yellow Urine Appearance Hazy A Urine pH 6 Ur Specific Gravit y 1.015 Urine Protein Neg Urine Glucose (UA) Norm Urine Ketones Negative Urine Blood Neg Urine Nitrate Negative Urine Bilirubin Neg Urine Urobilinogen Norm Ur Leukocyte [place] 1+ H Urine RBC 0-4 H Urine WBC 25-40 H Ur Squamous Epith Cells 0-4 H Amorphous Sediment Not Reportable Urine Bacteria 1+ H 06/23/20 15:53 WBC RBC Hgb Hct MCV MCH MCHC RDW Plt Count MPV Neut % (Auto) Lymph % (Auto) [place] % (Auto) Eos % (Auto) Baso % (Auto) Neut # (Auto) Lymph # (Auto) [place] # (Auto) Eos # (Auto) Baso # (Auto) Nucleated RBC % (a uto) Nucleated RBCs # Sodium 141 Potassium 4.0 Chloride 102 Carbon Dioxide 27 Anion Gap 16.0 BUN 29 H Creatinine 0.9 GFR Calculation Not Reportable Glucose 101 Estimat Average Gl ucose Hemoglobin A1c Calculated Osmolal ity 298 H Calcium 10.4 Phosphorus Magnesium Total Bilirubin 0.4 AST 15 ALT 14 Alkaline Phosphata se 83 Troponin T Baselin e Troponin T 120 Min [place] Delta Troponin T Troponin T Hi Sens 6Hr Troponin T Hi Sens 6Hr Delta NT-Pro-B Natriuret Pep 1524 H Total Protein 6.9 Albumin 4.4 Globulin 2.5 Triglycerides Cholesterol LDL Cholesterol, C alc HDL Cholesterol LDL/HDL Ratio Cholesterol/HDL Ra tyree TSH 2.68 Urine Color Urine Appearance Urine pH Ur Specific Gravit y Urine Protein Urine Glucose (UA) Urine Ketones Urine Blood Urine Nitrate Urine Bilirubin Urine Urobilinogen Ur Leukocyte [place] Urine RBC Urine WBC Ur Squamous Epith Cells Amorphous Sediment Urine Bacteria Vitals: Last Vital Signs Temp 97.6 F 06/24/20 07:30 Pulse 75 06/24/20 07:30 Resp 19 H 06/24/20 07:30 BP 126/77 06/24/20 07:30 Pulse Ox 95 06/24/20 07:30 Discharge Plan Discharge Patient Disposition: Home Condition: Stable Prescriptions: New amlodipine 10 mg Tablet 10 mg PO Q24H 30 Days Qty: 30 RF: 0 Eliquis 5 mg Tablet 5 mg PO BID 30 Days Qty: 60 RF: 0 aspirin 81 mg Tablet,Delayed Release (Dr/Ec) 81 mg PO DAILY 30 Days Qty: 30 RF: 0 furosemide 20 mg Tablet 20 mg PO Q12H 30 Days Qty: 60 RF: 0 metoprolol tartrate 25 mg Tablet 25 mg PO Q12H 30 Days Qty: 60 RF: 0 Continued pravastatin 40 mg tablet 40 mg PO BEDTIME@23 RF: 0 citalopram 20 mg tablet 20 mg PO DAILY@07 RF: 0 hydrochlorothiazide 25 mg tablet 25 mg PO DAILY@07 RF: 0 losartan 100 mg tablet 100 mg PO DAILY@07 RF: 0 bupropion HCl 300 mg tablet extended release 24 hr 300 mg PO DAILY@07 RF: 0 melatonin 10 mg capsule 10 mg PO BEDTIME@23 RF: 0 Discontinued meloxicam 15 mg tablet 15 mg PO DAILY@07 RF: 0 furosemide 20 mg tablet 20 mg PO DAILY@07 RF: 0 Discharge Orders: Discharge Order (Routine); Ordered 06/24/20 Ordered By: Saul Schmidt Other Ambulatory Orders: Complete Blood Count w/Auto (Routine) Timeframe: 1 Week Location: Determined by Patient Ordered By: Saul Schmidt Comprehensive Metabolic Panel (Routine) Timeframe: 1 Week Facility: [facility] - Location: Lab - Main Lab Ordered By: Saul Schmidt Referrals: Rebecca Proctor MD [Physician] - 2 weeks Jossie Beth MD [Primary Care Provider] - 4-7 days Discharge Diet: Cardiac Discharge Activity: Resume usual activity Patient Instructions: Metoprolol (By mouth), Furosemide (By mouth), Aspirin (By mouth), Amlodipine (By mouth), Apixaban (By mouth), Heart Failure (DC), Atrial Fibrillation (DC), Chest Pain (GEN) Activity Restrictions/Additional Instructions: -I have discharged you on Eliquis for atrial fibrillation -If you were to have bloody or black stools or bloody vomit or bloody cough come to the emergency room -If you were to have chest pain please come back to the emergency room -Please follow-up with cardiology in 2 to 3 weeks for consideration of stress testing -Please use Lasix for swelling -Please follow-up with primary care provider for blood pressure check, heart rate check -Please repeat blood work in 1 week Discharge Attestations Time Spent in Discharge Care*: less than 30 min Quality Metrics Clinical Quality Measures During this hospital stay, did patient experience: None Coding Level of Care Code 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
--- NOTE | 2020-06-24 17:30 | PC.NURSE ---
Discharge instructions given per the physician's orders. Patient verbalized understanding of teaching and did not have any further questions. IV has been removed. Patient dressed self. No further needs identified at this time.
--- NOTE | 2020-06-24 19:29 | USCV_ITS ---
Zenia Streeter Age: 79 Gender: F : 1940 Exam Date: 06/24/2020 06:35 Ordering Phys: Saul Schmidt MD Technologist: Tanvi Hayward [place] [facility] [place]ication: Hypertensive urgency, atrial fibrillation BP: 114 / 67 HR: 72 Rhythm: Atrial fibrillation Technical Quality: Suboptimal MEASUREMENTS (Male / Female) Normal Values 2D ECHO LV Diastolic Diameter PLAX 3.9 cm 4.2 - 5.9 / 3.9 - 5.3 cm LV Systolic Diameter PLAX 3.3 cm LV Chamber Size 3.7 cm IVS Diastolic Thickness 1.9 cm 0.6 - 1.0 / 0.6 - 0.9 cm IVS Systolic Thickness 1.8 cm LVPW Diastolic Thickness 1.0 cm 0.6 - 1.0 / 0.6 - 0.9 cm LVPW Systolic Thickness 1.2 cm RV Chamber Size 2.8 cm LVOT Diameter 2.0 cm LV Ejection Fraction 2D Teich 31.9 % LV Ejection Fraction MOD 2C 47.8 % LV Ejection Fraction 2C AL 49.5 % LA Diameter 4.0 cm LA Width 3.7 cm LA Height 5.7 cm RA Width 2.9 cm RA Height 4.3 cm Aorta at Sinotubular Diameter 2.2 cm M-MODE LV Diastolic Diameter MM 5.3 cm 4.2 - 5.9 / 3.9 - 5.3 cm LV Systolic Diameter MM 4.2 cm LV Ejection Fraction MM Teich 43.2 % IVS Diastolic Thickness MM 1.1 cm 0.6 - 1.0 / 0.6 - 0.9 cm IVS Systolic Thickness MM 1.2 cm LVPW Diastolic Thickness MM 1.1 cm 0.6 - 1.0 / 0.6 - 0.9 cm LVPW Systolic Thickness MM 1.6 cm Aortic Annulus Diameter 2.4 cm LA Ao Ratio MM 1.8 MV E Point Septal Separation 0.5 cm DOPPLER AV Peak Velocity 95.0 cm/s LVOT Peak Velocity 92.0 cm/s AV Area Cont Eq vti 3.3 cm squared AV Area Cont Eq pk 3.1 cm squared MV Area PHT 4.3 cm squared MV E' Velocity 86.0 cm/s TR Peak Velocity 223.3 cm/s TR Peak Gradient 19.9 mmHg TR Mean Velocity 176.5 cm/s TR Mean Gradient 13.1 mmHg TR Velocity Time Integral 66.9 cm TV Peak E Velocity 66.0 cm/s Right Atrial Pressure 8.0 mmHg Pulmonary Artery Systolic Pressu 27.9 mmHg PV Peak Velocity 67.0 cm/s RV Acceleration Time 0.1 s RV Ejection Time 0.3 s RV AcT/ET 0.3 FINDINGS Left Ventricle Normal left ventricular cavity size. Mildly decreased left ventricular systolic function. Left ventricular ejection fraction is estimated at 45-50 %. Mild global hypokinesis. Rhythm precludes evaluation of diastolic function. Right Ventricle Normal right ventricular size and systolic function, RVSP 27.9 mmHg. Right Atrium Mildly increased right atrial size. Right atrial pressure estimated at 8 mmHg. Left Atrium Mildly increased left atrial size. Mitral Valve Mild mitral annular calcification. No mitral valve stenosis. Trace mitral valve regurgitation. Aortic Valve Aortic valve not well visualized. Probably tricuspid aortic valve. No aortic valve stenosis. Trace aortic valve regurgitation. Tricuspid Valve Structurally normal tricuspid valve. No tricuspid valve stenosis. Mild tricuspid valve regurgitation. Pulmonic Valve Pulmonic valve not well visualized. No pulmonary valve stenosis. No pulmonary valve regurgitation. Pericardium No pericardial effusion. Aorta Normal-sized aortic root. Dilated inferior vena cava with normal respiratory changes. CONCLUSIONS 1. This is a technically very difficult study. 2. Normal left ventricular cavity size. Mildly decreased left ventricular systolic function. Left ventricular ejection fraction is estimated at 45-50%. Mild global hypokinesis. 3. Mild biatrial enlargement. 5. Mild tricuspid valve regurgitation. 6. No prior similar studies to compare. Rebecca Proctor MD (Electronically Signed) Final Date: 24 June 2020 15:08 S
== END 2020-06-24 17:00 | disposition home or self-care (01) ==
LOC: ER 15:43 → CSU 19:00
PROVIDERS: Admitting Provider Family Medicine; Emergency Provider Family Medicine; Family Provider Family Medicine; PCP Family Medicine; Visit Provider Family Medicine
DX: E78.2 Mixed hyperlipidemia (principal); I11.0 Hypertensive heart disease with heart failure; I50.30 Unspecified diastolic (congestive) heart failure; I48.91 Unspecified atrial fibrillation; I16.0 Hypertensive urgency; F33.1 Major depressive disorder, recurrent, moderate; Z87.891 Personal history of nicotine dependence; I21.4 Non-ST elevation (NSTEMI) myocardial infarction
CPT/HCPCS: 12345; 36415; 70450; 71045; 80053; 80061; 81001; 83036; 83735; 83880; 84100; 84443; 84484; 85025; 87086; 90471; 90686; 93005; 93306; 96374; 96375; 99283; 99285; G0378; J3490

== ENCOUNTER 2020-08-10 08:51 | Outpatient (CLI) | payer MEDICARE, SELFPAY ==
--- NOTE | 2020-08-10 08:53 | ECG_ITS ---
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 Interpretive Statements NAME OF STUDY: LEXISCAN SESTAMIBI STRESS TEST INDICATION: Dyspnea on exertion PROCEDURE: At the baseline, the blood pressure was 156/92 mm Hg with a heart rate of 89 bpm. The electrocardiogram showed atrial fibrillation, normal axis and non specific ST-T wave changes. ??? The Lexiscan was infused over a period of 20 seconds. A total of 0.4 milligrams of Lexiscan was infused. The stress phase was continued for a total of 5 minutes. Heart rate at the end of the stress phase was 95 bpm with a blood pressure of 140/91 mm Hg. The EKG at the peak infusion revealed no significant ST-T wave changes. ??? Sestamibi was injected 20 seconds after the Lexiscan infusion. ??? Blood pressure at the end of the recovery phase was 156/95 mm Hg with a heart rate of 105 beats per minute. ??? CONCLUSION: 1. No significant EKG changes with the LexiScan infusion. 2. No LexiScan induced chest pain or cardiac arrhythmia. 3. Normal blood pressure and heart rate response. 4. Sestamibi/sestamibi perfusion scan pending; see separate report. Electronically Signed On 08-12-2020 9:02:58 CANDY CATCHER by Rebecca Proctor M.D. [email or web address]
--- NOTE | 2020-08-10 08:53 | NMCV_ITS ---
NM yoav perf SPECT r/s* [id number] Zenia Streeter Age: 79 Gender: F : 1940 Exam Date: 08/10/2020 10:12 Ordering Phys: Rebecca Proctor MD ([email or web address]) Technologist: LEEANN Falcon Exam Location: [facility] Indications: DYSPNEA ON EXERTION STRESS TEST [facility] IMAGE PROTOCOL Rest/Stress 1 Lexiscan Day Radiopharmaceutical Dose (mCi) Administration Site Administered by Rest: Tc-99m 10.7 IV LEEANN Falcon Sestamibi Stress:Tc-99m 33.0 IV LEEANN Espinal Sestamibi Rest: 10-Aug-2020 60 Discovery 630 Stress: 10-Aug-2020 30 Discovery 630 0.4mg Lexiscan. Images obtained in supine and prone position. SPECT RESULTS Technical Quality: Excellent Raw Data Analysis: Normal Image Corrections: No attenuation or motion correction applied Summed Stress Score: 4 Summed Rest Score: 6 Summed Difference Score: 0 PERFUSION FINDINGS Small size perfusion abnormality of mild to moderate severity of mid to apical anterior, apical lateral and apical gruber on rest and stress images with improved tracer uptake in mid anterior wall on prone stress images. FUNCTIONAL RESULTS (calculated via Gated SPECT) Stress Image LV EF (%): 61 Stress EDV (mL):84 TID: 0.92 Stress ESV (mL):33 FUNCTIONAL FINDINGS: The left ventricle is normal in size. Transient Ischemia Dilatation of 0.92. There is normal left ventricular systolic function. The left ventricular ejection fraction is normal with a value of 61%. There is normal left ventricular wall thickening. No regional wall motion abnormality. Normal end-diastolic end-systolic volumes. IMPRESSIONS 1. Small sized perfusion abnormality of mild to moderate severity of mid to apical anterior, apical lateral and apical gruber with somewhat improved tracer uptake in mid anterior wall on prone stress images. 2. This may represent attenuation artifact or old myocardial infarction in left anterior descending artery territory. 3. Overall left ventricular systolic function is normal without regional wall motion abnormalities. 4. The left ventricular ejection fraction is normal with a value of 61%. 5. No significant coronary ischemia based on the study. Rebecca Proctor MD (Electronically Signed) Final Date: 15 August 2020 12:54 S
[2020-08-10 09:05] VITALS: BMI 39.6
[2020-08-10 11:03] VITALS: BP 144/104; PULSE 94
[2020-08-10] MEDS: regadenoson 0.4 Mg/5 ml Syringe IVP (11:03)
== END 2020-08-10 08:52 | disposition home or self-care (01) ==
LOC: CDL 08:55
PROVIDERS: PCP Family Medicine; Visit Provider Internal Medicine Cardiovascular Disease
DX: R06.09 Other forms of dyspnea (principal)
CPT/HCPCS: 78452; 93017; A9500; J2785

== ENCOUNTER → 2020-10-19 11:51 | Outpatient (BNVA) | payer MEDICARE, SELFPAY | PROVIDERS: PCP Family Medicine; Visit Provider Family Medicine | DX: I50.32 Chronic diastolic (congestive) heart failure (principal); I10 Essential (primary) hypertension; E78.2 Mixed hyperlipidemia; F33.1 Major depressive disorder, recurrent, moderate; I48.91 Unspecified atrial fibrillation | CPT/HCPCS: 80048 ==

== ENCOUNTER 2021-01-14 18:59 | Emergency (ER) | payer MEDICARE, SELFPAY ==
[2021-01-14 19:02] VITALS: BP 156/110; PULSE 113; RESP 20; TEMP 36.4; O2SAT 96; BMI 38.9
--- NOTE | 2021-01-14 19:07 | XRR_ITS ---
PROCEDURE INFORMATION: Exam: XR Chest Exam date and time: 01/14/2021 7:07 PM Age: 80 years old Clinical indication: Other: Palpitations TECHNIQUE: Imaging protocol: XR of the chest. Views: 1 view. Total images: 1 COMPARISON: CR XR chest 1V portable [id number] 06/23/2020 4:10 PM FINDINGS: Lungs: No visible active interstitial or alveolar airspace disease. Pleural spaces: Unremarkable. No pleural effusion. No pneumothorax. Heart/Mediastinum: Cardiac structures and configuration with arteriosclerosis and mild cardiomegaly. Bones/joints: Unremarkable as visualized for age. Other findings: Obesity. XR/XR chest 1V portable [id number] IMPRESSION: Nonacute.
--- NOTE | 2021-01-14 19:08 | ECG_ITS ---
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 Measurements Intervals [place] Rate: 79 P: 21 FL: 183 QRS: -41 QRSD: 157 T: 9 QT: 374 QTc: 429 Interpretive Statements SINUS RHYTHM POSSIBLE LEFT ATRIAL ENLARGEMENT [-0.1mV P WAVE IN V1/V2] MARKED LEFT AXIS DEVIATION [QRS AXIS < -30] INTRAVENTRICULAR CONDUCTION DELAY [130+ ms QRS DURATION] PROBABLE LATERAL MYOCARDIAL INFARCTION [35 ms Q WAVE IN I/aVL/V5/V6], OF INDETERMINATE AGE Compared to ECG 06/23/2020 22:42:56 Left-axis deviation now present Intraventricular conduction delay now present Myocardial infarct finding now present Atrial fibrillation no longer present T-wave abnormality no longer present Electronically Signed On 01-15-2021 18:10:37 CDT by Orlin Nichols M.D. [id number]
[2021-01-14 19:32] LABS: Basophils # 0.1 10^3/uL (0.0-0.1); Basophils % 0.9 %; Eosinophils % 11.3 %; Hematocrit 44.5 % (37.0-47.0); Hemoglobin 14.6 g/dL (11.5-15.3); Lymphocytes # 2.2 10^3/uL (0.8-4.8); Mean Corpuscular HGB Conc 32.8 g/dL (30.0-36.0); Mean Corpuscular Hemoglobin 29.2 pg (28.0-34.0); Mean Platelet Volume 10.4 fL (7.4-10.4); Monocytes % 11.3 %; Neutrophils # 4.46 10^3/uL (1.8-7.7); Neutrophils % 50.9 %; Nucleated Red Blood Cells % 0 %; Platelet Count 222 10^3/cmm (130-400); Red Cell Distribution Width 14.8 % (12.1-15.1); White Blood Count 8.8 10^3/uL (4.0-10.0)
[2021-01-14 19:50] LABS: INR 1.19 (0.8-1.2)
[2021-01-14 19:57] LABS: Troponin(5th) Baseline 21 ng/L (0-10)
[2021-01-14 20:07] LABS: Alanine Aminotransferase 16 U/L (0-33); Alkaline Phosphatase 102 IU/L (35-105); Anion Gap 17.6 (5-19); Aspartate Amino Transferase 15 U/L (0-32); Blood Urea Nitrogen 20 mg/dL (8-23); Calcium 9.3 mg/dL (8.5-10.5); Carbon Dioxide 26 mmol/L (22-29); Chloride 104 mmol/L (98-107); Creatine Phosphokinase 51 U/L (26-192); Globulin 2.2 g/dL (1.3-4.6); Glucose 93 mg/dL (65-115); NT Pro B Type Natriuretic Pept 1200 pg/mL (0-450); Osmolality Calculated 300 mOsm/kg (285-295); Potassium 3.6 mmol/L (3.5-5.1); Sodium 144 mmol/L (136-145); Total Bilirubin 0.5 mg/dL (0.15-1.2); Total Protein 6.2 g/dL (6.6-8.7)
[2021-01-14] MEDS: metoprolol tartrate 1 mg/1 mL SDV 5 mL 5 MG IV (20:52)
[2021-01-14 20:53] VITALS: BP 156/108; PULSE 99; RESP 17; O2SAT 96
--- NOTE | 2021-01-14 21:08 | ECG_ITS ---
[facility] Test Date: 2021-01-14 Pat Name: Zenia Streeter Department: Room: Gender: Female [employer]: : [id number] Requested By: Kevin Morel Order Number: [id number] Julio MD: Orlin Nichols M.D. Measurements Intervals [place] Rate: 95 P: IN: QRS: 59 QRSD: 97 T: 25 QT: 368 QTc: 464 Interpretive Statements ATRIAL FIBRILLATION NONSPECIFIC ST & T-WAVE ABNORMALITY ABNORMAL RHYTHM ECG Compared to ECG 01/14/2021 19:51:56 T-wave abnormality now present Sinus rhythm no longer present Left-axis deviation no longer present Intraventricular conduction delay no longer present Myocardial infarct finding no longer present Electronically Signed On 01-15-2021 18:12:41 CDT by Orlin Nichols M.D. [email or web address]
[2021-01-14 21:57] LABS: Troponin 5 2HR 19.26 ng/L (0-10)
[2021-01-14] MEDS: metoprolol tartrate 25 mg Tablet PO (22:02)
[2021-01-14 22:05] LABS: Troponin 5 2HR Delta -1.74 ABS# (0-10)
[2021-01-14 23:28] VITALS: BP 143/99; PULSE 94; RESP 18; O2SAT 95
--- NOTE | 2021-01-15 07:05 | ED_ITS ---
HPI - Chest Pain General: Chief Complaint: Chest Pain Stated Complaint: AFIB WITH RVR/ LOW BP Time Seen by Provider: 01/14/21 19:07 History of Present Illness: HPI narrative: 80-year-old female with a history of atrial fibrillation. She notes that her heart was racing at home. She checked her heart rate, and her heart rate was around 110-120. She was seen in urgent care for palpitations, and sent here. She denies any chest pain. She denies significant shortness of breath. She does states she feels tired. On further interview, she states that she did not take her metoprolol, as she could not find it. MD complaint: other Pertinent past history: other Onset (ago): hour(s) Timing of current episode: episodic Prior episodes: Yes Onset: during rest Pain radiation: none Relieving factors: nothing Exacerbating factors: exertion Associated symptoms: Reports diaphoresis, dyspnea (Mild) and palpitations; Deny abdominal pain, fever(s) or vomiting Review of Systems Const: Reports: diaphoresis; Denies: fever(s) Card: Reports: palpitations, irregular heart rhythm and swelling of feet/ankles; Denies: chest pain Resp: Reports: dyspnea (Mild) GI: Denies: abdominal pain or vomiting : Denies: flank pain or difficulty voiding Neuro: Reports: headache(s) and dizziness PFS ED PFSH: Medical History A-fib Benign hypertension History of alcoholism Insomnia Moderate episode of recurrent major depressive disorder Primary generalized (osteo)arthritis Surgical History History of hip surgery Hx of cholecystectomy Family History Mother Bipolar disorder Alcohol abuse Father CAD (coronary artery disease) Social History Smoking and tobacco status: former smoker Quit status (tobacco): has quit using tobacco Former quit date comment: when she was 23 yo Alcohol intake: former History of recent travel: No Current gender identity: Female Female Reproductive History: Spontaneous abortions: No Physical Exam Const: GENERAL APPEARANCE: well developed ORIENTATION/CONSCIOUSNESS: Yes oriented to person, Yes oriented to place and Yes oriented to time HENMT: COMMON NORMALS: normocephalic and Normal external nose present HEAD & SCALP: normocephalic FACE & SINUS: normal facial exam NOSE: Normal external nose present and No nasal discharge present Eye: COMMON NORMALS: Equal, round and reactive pupils present, EOMs intact bilaterally and conjunctivae normal EYELID: eyelids normal CONJUNCTIVA: Yes conjunctivae normal PUPIL: Yes Equal, round and reactive pupils present Neck/C-Spine: GENERAL: No tracheal deviation Chest: COMMONS NORMALS: normal inspection of the chest CHEST: No tenderness Resp: COMMON NORMALS: clear to auscultation bilaterally EFFORT & INSPECTION: No tachypneic, No respiratory distress, No retractions, No uses accessory muscles and No tracheal deviation AUSCULTATION: clear to auscultation bilaterally, no rhonchi, no wheezes and lung sounds not diminished Cardio: COMMON NORMALS: regular rate and regular rhythm RATE: regular rate RHYTHM: regular rhythm HEART SOUNDS: no murmurs PERIPHERAL PULSES: radial pulses present GI: INSPECTION: No abdominal distension AUSCULTATION: No Hyperactive bowel sounds present and No Hypoactive bowel sounds present PALPATION: No Guarding due to palpation present (GI) and No Rigid due to palpation PERCUSSION: no dullness to percussion and no tympanic to percussion : COMMON NORMALS: Yes no CVA tenderness BLADDER/KIDNEY EXAM: Yes no CVA tenderness Back/Pelvis: COMMON NORMALS: no CVA tenderness Neuro: SENSORIUM/ORIENTATION: Yes oriented to person, Yes oriented to place and Yes oriented to time Psych: COMMON NORMALS: mental status grossly normal Skin: COMMON NORMALS: no rashes or lesions noted GENERAL SKIN EXAM: no rashes or lesions noted Course Vital Signs: Vital signs: Vital Signs Temperature 97.6 F 01/14/21 19:02 Pulse Rate 94 01/14/21 23:28 Respiratory Rate 18 01/14/21 23:28 Blood Pressure 143/99 01/14/21 23:28 Pulse Oximetry 95 01/14/21 23:28 MDM - Chest Pain MDM Narrative: Medical decision making narrative: Patient was given 5 mg of metoprolol IV with improvement in her heart rate from the 120s, below 100. Her blood pressure remained stable. Her laboratory appears stable as well. Her troponin did not elevated 2 hours. She has no significant ST wave abnormality on her EKG. She denies any chest pain. She notes that she could not find her metoprolol. We will refill it for her. She is given oral metoprolol here, and allowed home. She knows to return for any worsening condition. Lab Data: Labs: Lab Results 01/14/21 01/14/21 01/14/21 Range/Units 19:23 19:23 19:23 WBC 8.8 (4.0-10.0) 10^3/ uL RBC 5.00 (4.1-5.3) 10^6/u L Hgb 14.6 (11.5-15.3) g/dL Hct 44.5 (37.0-47.0) % MCV 89.0 (81-99) fL MCH 29.2 (28.0-34.0) pg MCHC 32.8 (30.0-36.0) g/dL RDW 14.8 (12.1-15.1) % Plt Count 222 (130-400) 10^3/c mm MPV 10.4 (7.4-10.4) fL Neut % (Auto) 50.9 % Lymph % (Auto) 25.0 % [place] % (Auto) 11.3 % Eos % (Auto) 11.3 % Baso % (Auto) 0.9 % Neut # (Auto) 4.46 (1.8-7.7) 10^3/u L Lymph # (Auto) 2.2 (0.8-4.8) 10^3/u L [place] # (Auto) 1.0 H (0.2-0.9) 10^3/u L Eos # (Auto) 1.0 H (0.0-0.8) 10^3/u L Baso # (Auto) 0.1 (0.0-0.1) 10^3/u L Nucleated RBC % (a uto) 0 % Nucleated RBCs # 0.0 /100WBC PT 15.50 H (12.1-14.9) SECO NDS INR 1.19 (0.8-1.2) APTT 31.0 (23.9-36.7) SECO NDS Sodium 144 (136-145) mmol/L Potassium 3.6 (3.5-5.1) mmol/L Chloride 104 (98-107) mmol/L Carbon Dioxide 26 (22-29) mmol/L Anion Gap 17.6 (5-19) BUN 20 (8-23) mg/dL Creatinine 0.8 (0.5-0.9) mg/dL GFR Calculation Not Reportable Glucose 93 (65-115) mg/dL Calculated Osmolal ity 300 H (285-295) mOsm/k g Calcium 9.3 (8.5-10.5) mg/dL Total Bilirubin 0.5 (0.15-1.2) mg/dL AST 15 (0-32) U/L ALT 16 (0-33) U/L Alkaline Phosphata se 102 (35-105) IU/L Creatine Kinase 51 (26-192) U/L Troponin T Baselin e (0-10) ng/L Troponin T 120 Min avtar (0-10) ng/L Delta Troponin T (0-10) ABS# NT-Pro-B Natriuret Pep 1200 H (0-450) pg/mL Total Protein 6.2 L (6.6-8.7) g/dL Albumin 4.0 (3.5-5.2) g/dL Globulin 2.2 (1.3-4.6) g/dL 01/14/21 01/14/21 Range/Units 19:23 21:27 WBC (4.0-10.0) 10^3/ uL RBC (4.1-5.3) 10^6/u L Hgb (11.5-15.3) g/dL Hct (37.0-47.0) % MCV (81-99) fL MCH (28.0-34.0) pg MCHC (30.0-36.0) g/dL RDW (12.1-15.1) % Plt Count (130-400) 10^3/c mm MPV (7.4-10.4) fL Neut % (Auto) % Lymph % (Auto) % [place] % (Auto) % Eos % (Auto) % Baso % (Auto) % Neut # (Auto) (1.8-7.7) 10^3/u L Lymph # (Auto) (0.8-4.8) 10^3/u L [place] # (Auto) (0.2-0.9) 10^3/u L Eos # (Auto) (0.0-0.8) 10^3/u L Baso # (Auto) (0.0-0.1) 10^3/u L Nucleated RBC % (a uto) % Nucleated RBCs # /100WBC PT (12.1-14.9) SECO NDS INR (0.8-1.2) APTT (23.9-36.7) SECO NDS Sodium (136-145) mmol/L Potassium (3.5-5.1) mmol/L Chloride (98-107) mmol/L Carbon Dioxide (22-29) mmol/L Anion Gap (5-19) BUN (8-23) mg/dL Creatinine (0.5-0.9) mg/dL GFR Calculation Glucose (65-115) mg/dL Calculated Osmolal ity (285-295) mOsm/k g Calcium (8.5-10.5) mg/dL Total Bilirubin (0.15-1.2) mg/dL AST (0-32) U/L ALT (0-33) U/L Alkaline Phosphata se (35-105) IU/L Creatine Kinase (26-192) U/L Troponin T Baselin e 21 H (0-10) ng/L Troponin T 120 Min avtar 19.26 H (0-10) ng/L Delta Troponin T -1.74 L (0-10) ABS# NT-Pro-B Natriuret Pep (0-450) pg/mL Total Protein (6.6-8.7) g/dL Albumin (3.5-5.2) g/dL Globulin (1.3-4.6) g/dL Discharge Plan Discharge Patient Disposition: Home Clinical Impression: A-fib Qualifiers: Atrial fibrillation type: paroxysmal Qualified Code(s): I48.0 - Paroxysmal atrial fibrillation Condition: Stable Prescriptions: Continued metoprolol tartrate 25 mg tablet 25 mg PO Q12H 30 Days Qty: 60 RF: 5 No Action hydrochlorothiazide 25 mg tablet 25 mg PO DAILY 30 Days Qty: 30 RF: 5 losartan 100 mg tablet 100 mg PO DAILY Qty: 30 RF: 5 pravastatin 40 mg tablet 40 mg PO DAILY Qty: 30 RF: 5 furosemide 20 mg tablet 20 mg PO Q12H 30 Days Qty: 60 RF: 5 citalopram 20 mg tablet 20 mg PO DAILY 30 Days Qty: 30 RF: 5 bupropion HCl 300 mg tablet extended release 24 hr See Rx Instructions .ROUTE .COMPLEX Qty: 30 RF: 5 amlodipine 10 mg tablet 10 mg PO Q24H 30 Days Qty: 30 RF: 5 Eliquis 5 mg tablet 5 mg PO BID 30 Days Qty: 60 RF: 5 doxycycline hyclate 100 mg tablet 100 mg PO BID 7 Days Qty: 14 RF: 0 aspirin 81 mg tablet,delayed release (DR/EC) 81 mg PO DAILY 30 Days Qty: 30 RF: 2 melatonin 10 mg capsule 10 mg PO BEDTIME@23 RF: 0 Discharge Orders: Discharge ED (Routine); Ordered 01/14/21 Ordered By: eKvin Swanson Referrals: Jossie Beth MD [Primary Care Provider] - 1-3 days Discharge Diet: Advance as tolerated Discharge Activity: Increase activity as tolerated Patient Instructions: Atrial Fibrillation (ED) Activity Restrictions/Additional Instructions: Return for chest discomfort, shortness of breath, worsening swelling, worsening palpitations. Take your metoprolol as directed. Check your heart rate and blood pressure twice daily and report numbers to your physician Coding Level of Care Code ED Manager Leadership Development for [facility]
== END 2021-01-14 23:28 | disposition home or self-care (01) ==
PROVIDERS: Emergency Provider Emergency Medicine; PCP Family Medicine
DX: I48.0 Paroxysmal atrial fibrillation (principal); Z79.01 Long term (current) use of anticoagulants; Z79.82 Long term (current) use of aspirin; I10 Essential (primary) hypertension; Z87.891 Personal history of nicotine dependence
CPT/HCPCS: 36415; 71045; 80053; 82550; 83880; 84484; 85025; 85610; 85730; 93005; 96374; 99284; J3490

== ENCOUNTER → 2021-06-05 10:00 | Outpatient (BNVA) | payer MEDICARE, SELFPAY | PROVIDERS: PCP Family Medicine; Visit Provider Family Medicine | DX: I11.0 Hypertensive heart disease with heart failure (principal); E78.2 Mixed hyperlipidemia; I50.32 Chronic diastolic (congestive) heart failure; F33.1 Major depressive disorder, recurrent, moderate; I48.91 Unspecified atrial fibrillation; I48.0 Paroxysmal atrial fibrillation | CPT/HCPCS: 80053; 80061 ==

== ENCOUNTER → 2022-04-01 10:48 | Outpatient (BNVA) | payer MEDICARE, SELFPAY | PROVIDERS: PCP Family Medicine; Visit Provider Family Medicine | DX: I10 Essential (primary) hypertension (principal); I48.91 Unspecified atrial fibrillation; F33.1 Major depressive disorder, recurrent, moderate; I50.32 Chronic diastolic (congestive) heart failure; E78.2 Mixed hyperlipidemia; Z23 Encounter for immunization; I48.0 Paroxysmal atrial fibrillation | CPT/HCPCS: 80053; 80061; 83880 ==